=== PATIENT | male | born 1970 | race Caucasian/White ===

== ENCOUNTER 2016-08-01 08:36 | Emergency (ER) | payer BC ==
--- NOTE | 2016-08-01 09:46 | ED ---
Upper Extremity HPI - General Chief Complaint: Extremity Injury, Upper Stated Complaint: arm pain Time Seen by Provider: 08/01/16 09:26 Source: patient, RN notes reviewed Mode of arrival: ambulatory Limitations: no limitations - History of Present Illness Initial Comments: 45-year-old male presents emergency Department chief complaint left hand, arm pain. Patient states that he had no injury but states he's been using his hand more doing more work than he usually would. Patient states he feels some pain that radiates down from his neck, shoulder region down into his arm. States he primarily complains of complete left hand numbness without any weakness. Patient denies any chest pain or shortness breath. Patient states she does have full strength, full range of motion of the left hand. Patient states that is all digits to his left hand and feels a rash across his MCPs. Patient states that he is [id number]. Patient denies any neck pain at this time. - Related Data Previous Rx's Medication Instructions Recorded methylPREDNISolone [Medrol Dose 4 mg PO DIRECTED #1 pack 08/01/16 Pack] Allergies Allergy/AdvReac Type Severity Reaction Status Date / Time No Known Allergies Allergy Verified 08/01/16 08:59 Review of Systems ROS Statement: Those systems with pertinent positive or pertinent negative responses have been documented in the HPI. ROS Other: All systems not noted in ROS Statement are negative. Past Medical History Past Medical History: Diabetes Mellitus History of Any Multi-Drug Resistant Organisms: None Reported Additional Past Surgical History / Comment(s): eye surgery Past Psychological History: No Psychological Hx Reported Smoking Status: Current every day smoker Past Alcohol Use History: None Reported Past Drug Use History: Marijuana General Exam Limitations: no limitations General appearance: alert, in no apparent distress Head exam: Present: atraumatic, normocephalic, normal inspection Neck exam: Present: normal inspection, full ROM. Absent: tenderness, meningismus, lymphadenopathy Respiratory exam: Present: normal lung sounds bilaterally. Absent: respiratory distress, wheezes, rales, rhonchi, stridor Cardiovascular Exam: Present: regular rate, normal rhythm, normal heart sounds. Absent: systolic murmur, diastolic murmur, rubs, gallop, clicks Extremities exam: Present: other (Patient has some slight decreased range of motion of his left shoulder secondary to pain but he has full strength of his upper extremity bilaterally neurovascular intact radial pulses +2 equal bilaterally, patient has a negative Tinel's, negative Phalen's) Back exam: Present: normal inspection, full ROM. Absent: tenderness Neurological exam: Present: alert, oriented X3, CN II-XII intact, reflexes normal. Absent: motor sensory deficit Skin exam: Present: warm, dry, intact, normal color. Absent: rash Course Vital Signs 08/01/16 08:56 Temperature 98.3 F Pulse Rate 92 Respiratory 20 Rate Blood Pressure 154/88 O2 Sat by Pulse 98 Oximetry Medical Decision Making - Medical Decision Making 45-year-old male present emergency department for left hand numbness. Patient has ganglion cyst nor over the scaphoid. Patient referred to orthopedics. Patient we discharged this time. Disposition Clinical Impression: Ganglion cyst, Paresthesias in left hand, Cervical radiculopathy Disposition: HOME SELF-CARE Condition: Stable Instructions: Cervical Radiculopathy (ED) Additional Instructions: Please return to the Emergency Department if symptoms worsen or any other concerns. Prescriptions: methylPREDNISolone [Medrol Dose Pack] 4 mg PO DIRECTED #1 pack Referrals: None,Stated [Primary Care Provider] - 1-2 days Amando Sutherland DO [Doctor of Osteopathic Medicine] - 1-2 days Time of Disposition: 10:52
--- NOTE | 2016-08-01 10:29 | XR ---
EXAMINATION TYPE: 5 view cervical spine. 3 views left hand. DATE OF EXAM: 08/01/2016 10:00 AM COMPARISON: NONE HISTORY: 45-year-old male with left hand numbness and pain for 5 days FINDINGS: Cervical spine: No predental space widening or prevertebral soft tissue swelling. There is normal alignment of the ce rvical spine with mild endplate spondylosis throughout. The oblique views show no significant bony sp ondylotic neural foraminal narrowing on either side. Odontoid view is normal. Left hand: There is an intraosseous ganglion or cyst measuring 7 mm within the proximal scaphoid. No acute fract ure, subluxation, or dislocation. IMPRESSION: 1. Cervical spine: No acute osseous abnormality or malalignment. No significant bony spondylotic neur oforaminal narrowing seen on either side. 2. Left hand: No acute osseous abnormality seen. Suspect a 7 mm intraosseous ganglion within the scap hoid.
[2016-08-01 11:03] VITALS: BP 124/74; PULSE 70; RESP 16; TEMP 97.1
== END 2016-08-01 11:03 | disposition home or self-care (01) ==
LOC: EC 08:36
DX: M67.442 Ganglion, left hand (principal); M54.12 Radiculopathy, cervical region; F17.200 Nicotine dependence, unspecified, uncomplicated
CPT/HCPCS: 72050; 99283

== ENCOUNTER 2020-08-20 08:55 | Emergency (ER) | payer BC, OTHER ==
[2020-08-20 09:00] VITALS: RESP 18
--- NOTE | 2020-08-20 09:24 | ED ---
URI HPI - General Chief Complaint: Upper Respiratory Infection Stated Complaint: Chest Pain, Cough Time Seen by Provider: 08/20/20 09:09 Source: patient Mode of arrival: ambulatory Limitations: no limitations - History of Present Illness Initial Comments: 49-year-old male patient presents to the emergency department today for evaluation of cough and chest tightness that started this morning. States he also has nasal congestion and drainage. Does have a past history of smoking quit last November. Denies any shortness of breath. Denies chest pain. Denies any known fever or chills. Denies rash, nausea, vomiting, or diarrhea. Denies any known exposure to COVID-19. Patient denies any recent abdominal pain, constipation, back pain, numbness, tingling, dizziness, weakness, hematuria, dysuria, urinary urgency, urinary frequency, headache, visual changes, or any other complaints. - Related Data Previous Rx's Medication Instructions Recorded Albuterol Sulfate [Proair Hfa] 1 - 2 puff INHALATION Q6HR PRN #1 08/20/20 inhaler predniSONE 50 mg PO DAILY #5 tablet 08/20/20 Allergies Allergy/AdvReac Type Severity Reaction Status Date / Time No Known Allergies Allergy Verified 08/20/20 10:26 Review of Systems ROS Statement: Those systems with pertinent positive or pertinent negative responses have been documented in the HPI. ROS Other: All systems not noted in ROS Statement are negative. Past Medical History Past Medical History: Diabetes Mellitus History of Any Multi-Drug Resistant Organisms: None Reported Additional Past Surgical History / Comment(s): eye surgery Past Psychological History: No Psychological Hx Reported Smoking Status: Former smoker Past Alcohol Use History: None Reported Past Drug Use History: Marijuana General Exam Limitations: no limitations General appearance: alert, in no apparent distress, other (This is a well- developed, well-nourished adult male patient in no acute distress. Vital signs upon presentation are temperature 98.0F, pulse 70, respirations 18, blood pressure 136/87, pulse ox 97% on room air.) Eye exam: Present: normal appearance, PERRL, EOMI. Absent: scleral icterus, conjunctival injection, periorbital swelling ENT exam: Present: normal exam, normal oropharynx, mucous membranes moist Respiratory exam: Present: wheezes (Coarse wheezing noted and the posterior lung baugh worse on the left.). Absent: respiratory distress, rales, rhonchi, stridor Cardiovascular Exam: Present: regular rate, normal rhythm, normal heart sounds. Absent: systolic murmur, diastolic murmur, rubs, gallop, clicks GI/Abdominal exam: Present: soft, normal bowel sounds. Absent: distended, tenderness, guarding, rebound, rigid Neurological exam: Present: alert, oriented X3, CN II-XII intact Psychiatric exam: Present: normal affect, normal mood Skin exam: Present: warm, dry, intact, normal color. Absent: rash Course Vital Signs 08/20/20 08:58 Temperature 98.0 F Pulse Rate 70 Respiratory 18 Rate Blood Pressure 136/87 O2 Sat by Pulse 97 Oximetry Medical Decision Making - Medical Decision Making 49-year-old male, previous smoker presents to the emergency department today for evaluation of nasal congestion, cough, and chest tightness that started this morning. Physical examination did reveal coarse wheezing in the posterior lung baugh worse on the left side. Vital signs are unremarkable with good oxygen saturation. Chest x-ray shows chronic disease but no acute changes. He tested negative for COVID-19. He'll be discharged with a course of steroids and given a Pro Air inhaler. He is instructed to follow-up with his primary care physician for recheck in 1-2 days. Return parameters were discussed in detail. He verbalizes understanding and agrees with this plan. Attending is Dr. Banuelos. - Lab Data Lab Results 08/20/20 Range/Units 09:27 Coronavirus (PCR) Not Detected (Not Detectd) - Radiology Data Radiology results: report reviewed, image reviewed One view x-ray of the chest is obtained. Report was reviewed in its entirety. Impression by Dr. Deal shows chronic changes without evidence for acute pulmonary disease. Disposition Clinical Impression: Upper respiratory infection, Common cold Disposition: HOME SELF-CARE Condition: Good Instructions (If sedation given, give patient instructions): Upper Respiratory Infection (ED), Wheezing (ED) Additional Instructions: Take medications as directed. Follow up with your primary care physician for recheck in 1-2 days. Return to the emergency department for any new, worsening, or concerning symptoms. Prescriptions: predniSONE 50 mg PO DAILY #5 tablet Albuterol Sulfate [Proair Hfa] 1 - 2 puff INHALATION Q6HR PRN #1 inhaler PRN Reason: Shortness Of Breath Is patient prescribed a controlled substance at d/c from ED?: No Referrals: None,Stated [Primary Care Provider] - 1-2 days Time of Disposition: 10:36
--- NOTE | 2020-08-20 10:06 | XR ---
EXAMINATION TYPE: XR chest 1V DATE OF EXAM: 08/20/2020 HISTORY: Shortness of breath. COMPARISON: None. TECHNIQUE: Single view of the chest is submitted. FINDINGS: Demonstrated are scattered senescent parenchymal change. There is no evidence for focal infiltrate. The heart is stable. Hilar and mediastinal structures are within normal limits. Degenerative changes are seen of the dorsal spine. IMPRESSION: 1. Chronic changes without evidence for acute pulmonary disease.
[2020-08-20] MEDS ORDERED: predniSONE 50 MG TAB PO STA (10:35)
[2020-08-20 11:00] VITALS: BP 118/70; PULSE 96; TEMP 98.4
== END 2020-08-20 11:02 | disposition home or self-care (01) ==
LOC: EC 08:55
DX: J06.9 Acute upper respiratory infection, unspecified (principal); E11.9 Type 2 diabetes mellitus without complications; Z87.891 Personal history of nicotine dependence; F12.90 Cannabis use, unspecified, uncomplicated
CPT/HCPCS: 87635; 71045; 99285; J7512

== ENCOUNTER 2021-09-23 06:59 | Emergency (ER) | payer OTHER ==
[2021-09-23 07:05] VITALS: TEMP 98.1
[2021-09-23] MEDS ORDERED: LIDOCAINE 5% PATCH TOPICAL STA (07:39)
--- NOTE | 2021-09-23 07:41 | ED ---
General Adult HPI - General Chief complaint: Back Pain/Injury Stated complaint: fall, back pain Time Seen by Provider: 09/23/21 07:06 Source: patient Mode of arrival: ambulatory Limitations: no limitations - History of Present Illness Initial comments: Dictation was produced using [employer] dictation software. please excuse any grammatical, word or spelling errors. Chief Complaint: 50-year-old malepast medical history presents with back pain after fall History of Present Illness: 50-year-old male he has not up at 3 in this morning to get ready for work. He is walking on the steps when he slipped. He landed on his left side went down a couple steps. Patient had some left-sided lower extremity pain however that resolved quickly. He was able to get to work when he was told to go home because he didn't begin until 7 AM. Patient went home and laid down to get more rest. When he woke up toxically 30 minutes prior to arrival he started to have tightness in his upper lumbar lower thoracic back. Patient states he is injured his back in the past. Denies any fevers. No numbness and paresthesias of the lower extremities. No saddle anesthesia. No difficulty ambulating The ROS documented in this emergency department record has been reviewed and confirmed by me. Those systems with pertinent positive or negative responses have been documented in the HPI. All other systems are other negative and/or noncontributory. PHYSICAL EXAM: General Impression: Alert and oriented x3, not in acute distress HEENT: Normocephalic atraumatic, extra-ocular movements intact, pupils equal and reactive to light bilaterally, mucous membranes moist. Cardiovascular: Heart regular rate and rhythm Chest: Able to complete full sentences, no retractions, no tachypnea Musculoskeletal: Pulses present and equal in all extremities, no peripheral edema Motor: no focal deficits noted Neurological: CN II-XII grossly intact, no focal motor or sensory deficits noted Skin: Intact with no visualized rashes Psych: Normal affect and mood ED course: 50-year-old male presents to the emergency department for clinical presentation consistent with back strain. Vital signs upon arrival are within acceptable limits. Patient refusing analgesic administration. He is however agreeable to Lidoderm patch. Patient does not have any high-risk features. He does not take steroids. Does not have any history of osteoporosis. Thoracic and lumbar spine x-ray shows no acute processe patient will be discharged. Advised to follow-up with primary care doctor. Clinical presentation consistent with back strain. - Related Data Previous Rx's Medication Instructions Recorded Albuterol Sulfate [Proair Hfa] 1 - 2 puff INHALATION Q6HR PRN #1 08/20/20 inhaler predniSONE 50 mg PO DAILY #5 tablet 08/20/20 Allergies Allergy/AdvReac Type Severity Reaction Status Date / Time No Known Allergies Allergy Verified 09/23/21 07:03 Review of Systems ROS Statement: Those systems with pertinent positive or pertinent negative responses have been documented in the HPI. ROS Other: All systems not noted in ROS Statement are negative. Past Medical History Past Medical History: Diabetes Mellitus History of Any Multi-Drug Resistant Organisms: None Reported Additional Past Surgical History / Comment(s): eye surgery Past Psychological History: No Psychological Hx Reported Smoking Status: Former smoker Past Alcohol Use History: None Reported Past Drug Use History: Marijuana General Exam Limitations: no limitations Course Vital Signs 09/23/21 09/23/21 07:04 08:35 Temperature 98.1 F Pulse Rate 94 88 Respiratory 16 18 Rate Blood Pressure 135/81 132/80 O2 Sat by Pulse 99 99 Oximetry Disposition Clinical Impression: Back strain Disposition: HOME SELF-CARE Condition: Good Instructions (If sedation given, give patient instructions): Acute Low Back Pain (ED) Is patient prescribed a controlled substance at d/c from ED?: No Referrals: None,Stated [Primary Care Provider] - 1-2 days
--- NOTE | 2021-09-23 08:24 | XR ---
Thoracic spine HISTORY: Trauma and pain Frontal and lateral views of the thoracic spine on 4 images There is multilevel spondylosis. Thoracic vertebral bodies show preserved height, alignment, and bone mineralization. Metallic foreign body, BB present posteriorly on the right superimposed over the pos terior right lung base. Disc spaces mildly reduced in the upper to midthoracic spine. IMPRESSION: Degenerative disc disease. Foreign body.
--- NOTE | 2021-09-23 08:25 | XR ---
Lumbar spine HISTORY: Trauma and pain 3 views lumbar spine Correlation to thoracic spine same date, lumbar spine 01/27/2013 Foreign body superimposed over the posterior aspect of the right upper quadrant is again noted. Lumba r vertebral bodies show preserved height, alignment, and bone mineralization. There is multilevel spo ndylosis. Sclerosis is present in the posterior elements of the lower lumbar spine. Disc spaces are m aintained. IMPRESSION: Spondylosis, facet arthropathy. No acute fracture or subluxation.
[2021-09-23 08:42] VITALS: BP 132/80; PULSE 88; RESP 18
== END 2021-09-23 09:18 | disposition home or self-care (01) ==
LOC: EC 06:59
DX: S39.012A Strain of muscle, fascia and tendon of lower back, initial encounter (principal); E11.9 Type 2 diabetes mellitus without complications; Z87.891 Personal history of nicotine dependence; W10.9XXA Fall (on) (from) unspecified stairs and steps, initial encounter; Y93.01 Activity, walking, marching and hiking
CPT/HCPCS: 72070; 72100; 99284

== ENCOUNTER 2022-03-31 12:49 | Emergency (ER) | payer OTHER, BC ==
[2022-03-31 13:18] VITALS: TEMP 97.7
--- NOTE | 2022-03-31 13:37 | XR ---
EXAMINATION TYPE: XR hand complete RT DATE OF EXAM: 03/31/2022 1:32 PM INDICATION: Patient age:Male; 51 years old; Reason for study: crush injury to right hand fingers laceration 1st; [facility]. COMPARISON: None TECHNIQUE: Frontal, lateral and oblique views of the right hand were obtained. FINDINGS: Normal alignment of the visualized joints. No acute osseous pathology is identified. No e vidence of soft tissue swelling. IMPRESSION: No acute fracture or dislocation.
[2022-03-31] MEDS ORDERED: LIDOCAINE 1% INJ 10MG/ML (30 ML VIAL-PF) SQ ONE (15:11)
[2022-03-31] MEDS ORDERED: IBUPROFEN 800 MG TAB PO STA (15:11)
--- NOTE | 2022-03-31 15:47 | ED ---
Wound/Laceration HPI - General Chief Complaint: Wound/Laceration Stated Complaint: [facility],Finger injury Time Seen by Provider: 03/31/22 15:01 Source: patient Mode of arrival: ambulatory Limitations: no limitations - History of Present Illness Initial Comments: Patient is a 51-year-old male who presents with right ring finger injury. Patient states his finger got caught in a hydraulic door at work. He reports minimal pain. Reports last tetanus 2 years ago. Denies numbness and tingling. - Related Data Previous Rx's Medication Instructions Recorded Albuterol Sulfate [Proair Hfa] 1 - 2 puff INHALATION Q6HR PRN #1 08/20/20 inhaler predniSONE 50 mg PO DAILY #5 tablet 08/20/20 Cephalexin [Keflex] 500 mg PO Q6HR #20 cap 03/31/22 Allergies Allergy/AdvReac Type Severity Reaction Status Date / Time No Known Allergies Allergy Verified 09/23/21 07:03 Review of Systems ROS Statement: Those systems with pertinent positive or pertinent negative responses have been documented in the HPI. ROS Other: All systems not noted in ROS Statement are negative. Past Medical History Past Medical History: Diabetes Mellitus History of Any Multi-Drug Resistant Organisms: None Reported Additional Past Surgical History / Comment(s): eye surgery Past Psychological History: No Psychological Hx Reported Smoking Status: Former smoker Past Alcohol Use History: None Reported Past Drug Use History: Marijuana General Exam Limitations: no limitations General appearance: alert, in no apparent distress Respiratory exam: Present: normal lung sounds bilaterally. Absent: respiratory distress, wheezes, rales, rhonchi, stridor Cardiovascular Exam: Present: regular rate, normal rhythm, normal heart sounds. Absent: systolic murmur, diastolic murmur, rubs, gallop, clicks Extremities exam: Present: other (2 cm laceration over palmar right ring finger near PIP joint. Deep structures intact. Full ROM. Neurovascularly intact) Neurological exam: Present: alert, oriented X3, CN II-XII intact Psychiatric exam: Present: normal affect, normal mood Course Vital Signs 03/31/22 03/31/22 03/31/22 13:15 16:05 16:25 Temperature 97.7 F Pulse Rate 94 92 Respiratory 16 18 Rate Blood Pressure 143/102 130/84 O2 Sat by Pulse 98 96 Oximetry Procedures - Laceration Laceration #1 Consent Obtained: verbal consent Indication: laceration Site: other (right ring finger) Description: flap, irregular Anesthetic Used: lidocaine 1% Anesthesia Technique: nerve block Pre-repair: wound explored, irrigated extensively Type of Sutures: nylon Size of Sutures: 5-0, 6-0 Number of Sutures: 4 Technique: simple, interrupted Patient Tolerated Procedure: well, no complications Medical Decision Making - Medical Decision Making This is a 51-year-old male presenting with right ring finger laceration. Right hand x-ray obtained and reviewed by me which is negative for fracture and foreign body. Wound was irrigated extensively well approximated with 4 sutures. Tetanus update not indicated. Wound education provided in detail. Will place patient on Keflex for infection prophylaxis as patient is at greater risk for infection with his work history. Dr. Molina is my attending. Disposition Clinical Impression: Laceration Disposition: HOME SELF-CARE Condition: Good Instructions (If sedation given, give patient instructions): Care For Your Stitches (ED), Laceration (ED) Additional Instructions: Leave wound uncovered. Keep wound clean and dry. Wash with a mild soap. Take Tylenol or anti-inflammatories such as Motrin for pain. Follow-up with primary care provider in 1-2 days. Return for suture removal in 7-10 days. Report back to the emergency department if you experience new, concerning, or worsening symptoms. Is patient prescribed a controlled substance at d/c from ED?: No Referrals: None,Stated [Primary Care Provider] - 1-2 days Time of Disposition: 15:47
[2022-03-31 16:05] VITALS: BP 130/84
[2022-03-31 16:27] VITALS: PULSE 92; RESP 18
== END 2022-03-31 16:38 | disposition home or self-care (01) ==
LOC: EC 12:49
DX: S61.210A Laceration without foreign body of right index finger without damage to nail, initial encounter (principal); E11.9 Type 2 diabetes mellitus without complications; Z87.891 Personal history of nicotine dependence; F12.90 Cannabis use, unspecified, uncomplicated; Z79.51 Long term (current) use of inhaled steroids; W23.1XXA Caught, crushed, jammed, or pinched between stationary objects, initial encounter
CPT/HCPCS: 73130; 99283; 12001; J2001

== ENCOUNTER → 2022-04-09 | Outpatient (CLI) | payer OTHER ==
--- NOTE | 2022-04-09 09:40 | XR ---
EXAMINATION TYPE: XR finger RT DATE OF EXAM: 04/09/2022 COMPARISON: Prior right hand x-ray 9 days ago HISTORY: Crushing Injury with pain TECHNIQUE: 3 views right second finger. FINDINGS: No acute fracture or dislocation within the second finger of the right hand. Joint spaces a re maintained. Possible punctate soft tissue foreign body distal aspect of the second finger just bel ow the distal nail bed is present on all 3 images. Correlate clinically. IMPRESSION: No acute fracture or dislocation second finger right hand.
== END | disposition home or self-care (01) ==
LOC: RADXRMAIN 09:16
PROVIDERS: ATTEND Emergency Medicine
DX: S61.200D Unspecified open wound of right index finger without damage to nail, subsequent encounter (principal); S67.21XD Crushing injury of right hand, subsequent encounter

== ENCOUNTER 2022-05-13 06:56 | Emergency (ER) | payer BC ==
[2022-05-13 07:04] VITALS: BP 132/97; PULSE 83; TEMP 97.9
[2022-05-13 07:33] VITALS: RESP 20
--- NOTE | 2022-05-13 07:52 | XR ---
EXAMINATION TYPE: XR chest 2V DATE OF EXAM: 05/13/2022 7:48 AM COMPARISON: Chest radiographs from 08/20/2020. TECHNIQUE: XR chest 2V Frontal and lateral views of the chest. CLINICAL INDICATION:Male, 51 years old with history of cough; FINDINGS: Lungs/Pleura: There is no evidence of pleural effusion, focal consolidation, or pneumothorax. Pulmonary vascularity: Unremarkable. Heart/mediastinum: Cardiomediastinal silhouette is unremarkable. Musculoskeletal: No acute osseous pathology. Stable 5 mm metallic BB within the posterior right back soft tissues. IMPRESSION: No acute cardiopulmonary disease/process. No significant change from prior exams.
--- NOTE | 2022-05-13 08:29 | ED ---
General Adult HPI - General Chief complaint: Upper Respiratory Infection Stated complaint: Congestion, Body Aches Time Seen by Provider: 05/13/22 06:57 Source: patient, RN notes reviewed Mode of arrival: ambulatory Limitations: no limitations - History of Present Illness Initial comments: 51-year-old male presents emergency Department with chief complaint of fever cough congestion body aches. Patient states symptoms started this morning when he woke up. He states he feels very achy diffusely. Denies feeling short of breath. Patient states that he used to be a smoker. Patient states that he is not taking time Motrin does not want any. Patient denies nausea vomiting diarrhea constipation no sick contacts. - Related Data Previous Rx's Medication Instructions Recorded Albuterol Sulfate [Proair Hfa] 1 - 2 puff INHALATION Q6HR PRN #1 08/20/20 inhaler predniSONE 50 mg PO DAILY #5 tablet 08/20/20 Cephalexin [Keflex] 500 mg PO Q6HR #20 cap 03/31/22 Albuterol Sulfate [Proair Hfa] 1 - 2 puff INHALATION Q4HR PRN 05/13/22 #8.5 gm Oseltamivir [Tamiflu] 75 mg PO Q12HR #10 cap 05/13/22 Allergies Allergy/AdvReac Type Severity Reaction Status Date / Time No Known Allergies Allergy Verified 05/13/22 07:04 Review of Systems ROS Statement: Those systems with pertinent positive or pertinent negative responses have been documented in the HPI. ROS Other: All systems not noted in ROS Statement are negative. Past Medical History Past Medical History: Diabetes Mellitus History of Any Multi-Drug Resistant Organisms: None Reported Additional Past Surgical History / Comment(s): eye surgery Past Psychological History: No Psychological Hx Reported Smoking Status: Former smoker Past Alcohol Use History: None Reported Past Drug Use History: Marijuana General Exam Limitations: no limitations General appearance: alert, in no apparent distress Head exam: Present: atraumatic, normocephalic, normal inspection Eye exam: Present: normal appearance, PERRL, EOMI. Absent: scleral icterus, conjunctival injection, periorbital swelling ENT exam: Present: normal exam, normal oropharynx, mucous membranes moist Neck exam: Present: normal inspection. Absent: tenderness, meningismus, lymphadenopathy Respiratory exam: Present: wheezes. Absent: normal lung sounds bilaterally, respiratory distress, rales, rhonchi, stridor Cardiovascular Exam: Present: regular rate, normal rhythm, normal heart sounds. Absent: systolic murmur, diastolic murmur, rubs, gallop, clicks Course Vital Signs 05/13/22 05/13/22 07:00 07:28 Temperature 97.9 F Pulse Rate 83 Respiratory 19 20 Rate Blood Pressure 132/97 O2 Sat by Pulse 97 Oximetry Medical Decision Making - Medical Decision Making Chest x-ray as interpreted by me and radiology no acute abnormality. Patient is influenza A positive. Patient discharged in stable condition return parameters were discussed. - Lab Data Lab Results 05/13/22 Range/Units 07:13 Influenza Type A (PCR) Detected A (Not Detectd) Influenza Type B (PCR) Not Detected (Not Detectd) RSV (PCR) Not Detected (Not Detectd) SARS-CoV-2 (PCR) Not Detected (Not Detectd) Disposition Clinical Impression: Influenza A Disposition: HOME SELF-CARE Condition: Stable Instructions (If sedation given, give patient instructions): Influenza (ED) Additional Instructions: Please return to the Emergency Department if symptoms worsen or any other concerns. Prescriptions: Albuterol Sulfate [Proair Hfa] 1 - 2 puff INHALATION Q4HR PRN #8.5 gm PRN Reason: difficulty in breathing Oseltamivir [Tamiflu] 75 mg PO Q12HR #10 cap Is patient prescribed a controlled substance at d/c from ED?: No Referrals: None,Stated [Primary Care Provider] - 1-2 days Time of Disposition: 08:29
== END 2022-05-13 08:41 | disposition home or self-care (01) ==
LOC: EC 06:56
DX: J10.1 Influenza due to other identified influenza virus with other respiratory manifestations (principal); E11.9 Type 2 diabetes mellitus without complications; F12.90 Cannabis use, unspecified, uncomplicated; Z87.891 Personal history of nicotine dependence; Z20.822 Contact with and (suspected) exposure to COVID-19
CPT/HCPCS: 71046; 87636; 99283; 99284

== ENCOUNTER 2022-08-20 06:14 | Emergency (ER) | payer BC ==
[2022-08-20 06:30] VITALS: RESP 18; TEMP 98.1
--- NOTE | 2022-08-20 06:55 | ED ---
General Adult HPI - General Chief complaint: Wound/Laceration Stated complaint: PAIN IN BOTH FEET/CUT BETWEEN TOES ON RIGHT FOOT Time Seen by Provider: 08/20/22 06:23 Source: patient, RN notes reviewed Mode of arrival: ambulatory - History of Present Illness Initial comments: 51-year-old male presents emergency Department with chief complaint of right foot injury. Patient states she stepped on his dog bone and states he rolled his foot complaining of fifth digit pain in between the toes. Patient states his tetanus is up-to-date. Patient states he has more chronic pain of both feet recent he states he is a type II diabetic states his blood sugar is wax and wane States started 2 to 300s. Patient states it was better this morning patient denies any discoloration of his feet denies any other trauma. - Related Data Previous Rx's Medication Instructions Recorded Albuterol Sulfate [Proair Hfa] 1 - 2 puff INHALATION Q6HR PRN #1 08/20/20 inhaler predniSONE 50 mg PO DAILY #5 tablet 08/20/20 Cephalexin [Keflex] 500 mg PO Q6HR #20 cap 03/31/22 Albuterol Sulfate [Proair Hfa] 1 - 2 puff INHALATION Q4HR PRN 05/13/22 #8.5 gm Oseltamivir [Tamiflu] 75 mg PO Q12HR #10 cap 05/13/22 Cephalexin [Keflex] 500 mg PO Q8HR #21 cap 08/20/22 Allergies Allergy/AdvReac Type Severity Reaction Status Date / Time No Known Allergies Allergy Verified 05/13/22 07:04 Review of Systems ROS Statement: Those systems with pertinent positive or pertinent negative responses have been documented in the HPI. ROS Other: All systems not noted in ROS Statement are negative. Past Medical History Past Medical History: Diabetes Mellitus History of Any Multi-Drug Resistant Organisms: None Reported Additional Past Surgical History / Comment(s): eye surgery Past Psychological History: No Psychological Hx Reported Smoking Status: Former smoker Past Alcohol Use History: None Reported Past Drug Use History: Marijuana General Exam Limitations: no limitations General appearance: alert, in no apparent distress Head exam: Present: atraumatic, normocephalic, normal inspection Respiratory exam: Present: normal lung sounds bilaterally. Absent: respiratory distress, wheezes, rales, rhonchi, stridor Cardiovascular Exam: Present: regular rate, normal rhythm, normal heart sounds. Absent: systolic murmur, diastolic murmur, rubs, gallop, clicks Extremities exam: Present: other (Right foot fifth digit there is pain of the digit and just proximal to the digit. There is a small opening between the toes without any erythema or purulent drainage. Neurovascular intact) Neurological exam: Present: alert Skin exam: Present: warm, dry, intact, normal color. Absent: rash Course Vital Signs 08/20/22 06:23 Temperature 98.1 F Pulse Rate 105 H Respiratory 18 Rate Blood Pressure 146/103 O2 Sat by Pulse 100 Oximetry Medical Decision Making - Medical Decision Making Was pt. sent in by a medical professional or institution (, IVAN, FIRE EXTINGUISHER CHARGER, urgent care, hospital, or custodial...) When possible be specific @ -No Did you speak to anyone other than the patient for history (EMS, parent, family, police, friend...)? What history was obtained from this source @ -No Did you review nursing and triage notes (agree or disagree)? Why? @ -I reviewed and agree with nursing and triage notes Were old charts reviewed (outside hosp., previous admission, EMS record, old EKG, old radiological studies, urgent care reports/EKG's, custodial records)? Report findings @ -No old charts were reviewed Differential Diagnosis (chest pain, altered mental status, abdominal pain women, abdominal pain men, vaginal bleeding, weakness, fever, dyspnea, syncope, headache, dizziness, GI bleed, back pain, seizure, CVA, palpatations, mental health, musculoskeletal)? @ -Toe fracture, foot fracture, foot wound, as this is not CONCLUSIVE EKG interpreted by me (3pts min.). @ -[None X-rays interpreted by me (1pt min.). @ -X-ray shows no acute fracture of the right foot CT interpreted by me (1pt min.). @ -None done U/S interpreted by me (1pt. min.). @ -None done What testing was considered but not performed or refused? (CT, X-rays, U/S, labs)? Why? @ -None What meds were considered but not given or refused? Why? @ -None Did you discuss the management of the patient with other professionals (professionals i.e. , PA, FIRE EXTINGUISHER CHARGER, lab, RT, psych nurse, community mental health social worker, information coordinator, teacher, certified juvenile probation officer, case packer)? Give summary @ -No Was smoking cessation discussed for >3mins.? @ -No Was critical care preformed (if so, how long)? @ -No Were there social determinants of health that impacted care today? How? (Homelessness, low income, unemployed, alcoholism, drug addiction, transportation, low edu. Level, literacy, decrease access to med. care, fdc, rehab)? @ -No Was there de-escalation of care discussed even if they declined (Discuss DNR or withdrawal of care, Hospice)? DNR status @ -No What co-morbidities impacted this encounter? (DM, HTN, Smoking, COPD, CAD, Cancer, CVA, ARF, Chemo, Hep., AIDS, mental health diagnosis, sleep apnea, morbid obesity)? @ -Diabetes Was patient admitted / discharged? Hospital course, mention meds given and route, prescriptions, significant lab abnormalities, going to OR and other pertinent info. @ -Discharged patient has no acute fracture on x-ray patient is a small open wound with no changes currently patient replacement course and was given patient is diabetic, poorly controlled with some neuropathy. Patient advised to have checks daily of his feet. Undiagnosed new problem with uncertain prognosis? @ -No Drug Therapy requiring intensive monitoring for toxicity (Heparin, Nitro, Insulin, Cardizem)? @ -No Were any procedures done? @ -No Diagnosis/symptom? @ -Right foot contusion, foot wound Acute, or Chronic, or Acute on Chronic? @ -Acute Uncomplicated (without systemic symptoms) or Complicated (systemic symptoms)? @ -Uncomplicated Side effects of treatment? @ -No Exacerbation, Progression, or Severe Exacerbation? @ -No Poses a threat to life or bodily function? How? (Chest pain, [place], [place], pneumonia, PE, COPD, DKA, ARF, appy, cholecystitis, CVA, Diverticulitis, Homicidal, Olimpia cidal, threat to staff... and all critical care pts) @ -No Disposition Clinical Impression: Foot contusion, Wound of foot, Diabetic neuropathy Disposition: HOME SELF-CARE Condition: Stable Instructions (If sedation given, give patient instructions): Foot Contusion (ED) Additional Instructions: Please return to the Emergency Department if symptoms worsen or any other concerns. Prescriptions: Cephalexin [Keflex] 500 mg PO Q8HR #21 cap Is patient prescribed a controlled substance at d/c from ED?: No Referrals: None,Stated [Primary Care Provider] - 1-2 days Time of Disposition: 07:17
--- NOTE | 2022-08-20 07:00 | XR ---
EXAMINATION TYPE: XR foot complete RT DATE OF EXAM: 08/20/2022 COMPARISON: None HISTORY: Pain fifth digit TECHNIQUE: 3 view right foot FINDINGS: No acute fracture or dislocation is evident. Joint spaces are preserved. Soft tissues are n ormal. Follow up exams can be performed 710 days from acute trauma for continued pain. IMPRESSION: 1. No acute osseous around the right foot
[2022-08-20 07:37] VITALS: BP 139/88; PULSE 98
== END 2022-08-20 07:37 | disposition home or self-care (01) ==
LOC: EC 06:14
DX: S90.31XA Contusion of right foot, initial encounter (principal); S91.301A Unspecified open wound, right foot, initial encounter; E11.40 Type 2 diabetes mellitus with diabetic neuropathy, unspecified; F12.90 Cannabis use, unspecified, uncomplicated; Z87.891 Personal history of nicotine dependence; W22.8XXA Striking against or struck by other objects, initial encounter
CPT/HCPCS: 99283

== ENCOUNTER 2023-06-03 06:07 | Emergency (ER) | payer BC ==
[2023-06-03 06:40] VITALS: TEMP 97.9
--- NOTE | 2023-06-03 06:46 | ED ---
URI HPI - General Chief Complaint: Upper Respiratory Infection Stated Complaint: Congestion Time Seen by Provider: 06/03/23 06:22 Source: patient, RN notes reviewed Limitations: no limitations - History of Present Illness Initial Comments: This is a 52-year-old male presents emergency department with chief complaint of cough congestion body aches. Patient states symptoms overnight. He states he feels like he has tons of congestion in his sinus, chest. He states he has a productive cough he reports possible fever and bodyaches. Denies any GI symptoms. He states he has multiple contacts at work to have had COVID-19 - Related Data Previous Rx's Medication Instructions Recorded Albuterol Sulfate [Proair Hfa] 1 - 2 puff INHALATION Q6HR PRN #1 08/20/20 inhaler predniSONE 50 mg PO DAILY #5 tablet 08/20/20 Cephalexin [Keflex] 500 mg PO Q6HR #20 cap 03/31/22 Albuterol Sulfate [Proair Hfa] 1 - 2 puff INHALATION Q4HR PRN 05/13/22 #8.5 gm Oseltamivir [Tamiflu] 75 mg PO Q12HR #10 cap 05/13/22 Cephalexin [Keflex] 500 mg PO Q8HR #21 cap 08/20/22 Cephalexin [Keflex] 500 mg PO Q6HR #40 cap 03/03/23 Allergies Allergy/AdvReac Type Severity Reaction Status Date / Time No Known Allergies Allergy Verified 06/03/23 06:21 Review of Systems ROS Statement: Those systems with pertinent positive or pertinent negative responses have been documented in the HPI. ROS Other: All systems not noted in ROS Statement are negative. Past Medical History Past Medical History: Diabetes Mellitus History of Any Multi-Drug Resistant Organisms: None Reported Additional Past Surgical History / Comment(s): eye surgery Past Psychological History: No Psychological Hx Reported Smoking Status: Former smoker Past Alcohol Use History: None Reported Past Drug Use History: Marijuana General Exam Limitations: no limitations General appearance: alert, in no apparent distress Head exam: Present: atraumatic, normocephalic, normal inspection Eye exam: Present: normal appearance, PERRL, EOMI. Absent: scleral icterus, conjunctival injection, periorbital swelling ENT exam: Present: normal exam, normal oropharynx, mucous membranes moist Neck exam: Present: normal inspection, full ROM. Absent: tenderness, meningismus, lymphadenopathy Respiratory exam: Present: normal lung sounds bilaterally. Absent: respiratory distress, wheezes, rales, rhonchi, stridor Cardiovascular Exam: Present: regular rate, normal rhythm, normal heart sounds. Absent: systolic murmur, diastolic murmur, rubs, gallop, clicks GI/Abdominal exam: Present: soft, normal bowel sounds. Absent: distended, tenderness, guarding, rebound, rigid Neurological exam: Present: alert Course Vital Signs 06/03/23 06:16 Temperature 97.9 F Pulse Rate 101 H Respiratory 20 Rate Blood Pressure 138/89 O2 Sat by Pulse 97 Oximetry Medical Decision Making - Medical Decision Making Was pt. sent in by a medical professional or institution (, IVAN, CLAIM ADMINISTRATOR, urgent care, hospital, or residential...) When possible be specific @ -No Did you speak to anyone other than the patient for history (EMS, parent, family, police, friend...)? What history was obtained from this source @ -No Did you review nursing and triage notes (agree or disagree)? Why? @ -I reviewed and agree with nursing and triage notes Were old charts reviewed (outside hosp., previous admission, EMS record, old EKG, old radiological studies, urgent care reports/EKG's, residential records)? Report findings @ -No old charts were reviewed Differential Diagnosis (chest pain, altered mental status, abdominal pain women, abdominal pain men, vaginal bleeding, weakness, fever, dyspnea, syncope, headache, dizziness, GI bleed, back pain, seizure, CVA, palpatations, mental health, musculoskeletal)? @ -COVID 19, RSV, influenza, pneumonia, acute bronchitis, URI, this list is not all inclusive EKG interpreted by me (3pts min.). @ -None X-rays interpreted by me (1pt min.). @ -None done CT interpreted by me (1pt min.). @ -None done U/S interpreted by me (1pt. min.). @ -None done What testing was considered but not performed or refused? (CT, X-rays, U/S, labs)? Why? @ -None What meds were considered but not given or refused? Why? @ -None Did you discuss the management of the patient with other professionals (professionals i.e. , IVAN, CLAIM ADMINISTRATOR, lab, RT, psych nurse, psychotherapist social worker, director manufacturing engineering, teacher, school services officer, pillowcase cleaner)? Give summary @ -No Was smoking cessation discussed for >3mins.? @ -No Was critical care preformed (if so, how long)? @ -No Were there social determinants of health that impacted care today? How? (Homelessness, low income, unemployed, alcoholism, drug addiction, transportation, low edu. Level, literacy, decrease access to med. care, detention, rehab)? @ -No Was there de-escalation of care discussed even if they declined (Discuss DNR or withdrawal of care, Hospice)? DNR status @ -No What co-morbidities impacted this encounter? (DM, HTN, Smoking, COPD, CAD, Cancer, CVA, ARF, Chemo, Hep., AIDS, mental health diagnosis, sleep apnea, morbid obesity)? @ -None Was patient admitted / discharged? Hospital course, mention meds given and route, prescriptions, significant lab abnormalities, going to OR and other pertinent info. @ -Discharge patient drives a positive. Patient's is no signs of distress we discharged in stable condition return parameters were discussed. Undiagnosed new problem with uncertain prognosis? @ -No Drug Therapy requiring intensive monitoring for toxicity (Heparin, Nitro, Insulin, Cardizem)? @ -No Were any procedures done? @ -No Diagnosis/symptom? @ -RSV infection] Acute, or Chronic, or Acute on Chronic? @ -Acute Uncomplicated (without systemic symptoms) or Complicated (systemic symptoms)? @ -Uncomplicated. Side effects of treatment? @ -No Exacerbation, Progression, or Severe Exacerbation? @ -No Poses a threat to life or bodily function? How? (Chest pain, [place], [place], pneumonia, PE, COPD, DKA, ARF, appy, cholecystitis, CVA, Diverticulitis, Homicidal, Suicidal, threat to staff... and all critical care pts) @ -No - Lab Data Lab Results 06/03/23 Range/Units 06:29 Influenza Type A (PCR) Not Detected (Not Detectd) Influenza Type B (PCR) Not Detected (Not Detectd) RSV (PCR) Detected A (Not Detectd) SARS-CoV-2 (PCR) Not Detected (Not Detectd) Disposition Clinical Impression: RSV infection Disposition: HOME SELF-CARE Condition: Stable Instructions (If sedation given, give patient instructions): Upper Respiratory Infection (ED) Additional Instructions: Please return to the Emergency Department if symptoms worsen or any other concerns. Is patient prescribed a controlled substance at d/c from ED?: No Referrals: None,Stated [Primary Care Provider] - 1-2 days Time of Disposition: 07:32
[2023-06-03 08:16] VITALS: BP 132/86; PULSE 96; RESP 18
== END 2023-06-03 07:54 | disposition home or self-care (01) ==
LOC: EC 06:07
DX: R09.81 Nasal congestion (principal); B97.4 Respiratory syncytial virus as the cause of diseases classified elsewhere; E11.9 Type 2 diabetes mellitus without complications; F12.90 Cannabis use, unspecified, uncomplicated; Z87.891 Personal history of nicotine dependence; Z20.822 Contact with and (suspected) exposure to COVID-19
CPT/HCPCS: 87636; 99283

== ENCOUNTER 2023-10-24 02:30 | Emergency (ER) | payer BC ==
[2023-10-24] MEDS: LIDOCAINE 4% PATCH TOPICAL ONE (03:30)
[2023-10-24] MEDS: DEXAMETHASONE SOD PHOSPHATE 10 MG/ML 1 ML VIAL IM STA (03:32)
[2023-10-24] MEDS: KETOROLAC 15 MG/ML 1 ML VIAL IM STA (03:33)
[2023-10-24] MEDS: ORPHENADRINE 30 MG/ML 2 ML VIAL IM STA (03:33)
[2023-10-24] MEDS: IBUPROFEN 800 MG TAB PO STA (03:40)
[2023-10-24] MEDS: CYCLOBENZAPRINE 10 MG TAB PO STA (03:40)
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
[2023-10-24] MEDS: HYDROcodone/APAP 7.5-325MG 1 EACH TAB PO ONE (05:08)
--- NOTE | 2023-10-24 05:37 | XR ---
EXAM: XR Thoracic Spine, 2 Views CLINICAL HISTORY: ITS.REASON XR Reason: injury TECHNIQUE: Frontal and lateral views of the thoracic spine. COMPARISON: 09/23/2021 FINDINGS: Vertebrae: Unremarkable. No acute fracture. Normal alignment. Disc spaces: No acute findings. No significant narrowing. Soft tissues: Unremarkable. IMPRESSION: Normal thoracic spine x-rays.
[2023-10-24 06:04] VITALS: BP 107/73; PULSE 99; RESP 20; TEMP 97.8
== END 2023-10-24 06:02 | disposition home or self-care (01) ==
LOC: EC 02:30
DX: M54.9 Dorsalgia, unspecified (principal); Z87.891 Personal history of nicotine dependence; V29.99XA Rider (driver) (passenger) of other motorcycle injured in unspecified traffic accident, initial encounter; Y92.410 Unspecified street and highway as the place of occurrence of the external cause
CPT/HCPCS: 72070; 99284

== ENCOUNTER 2023-10-26 03:49 | Emergency (ER) | payer BC ==
[2023-10-26 04:43] VITALS: TEMP 98
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
[2023-10-26 05:15] LABS: Appearance,Urine Clear (Clear); Bilirubin,Urine Negative (Negative); Blood,Urine Negative (Negative); Color,Urine Colorless; Glucose,Urine (UA) 4+ (Negative); Ketones,Urine Negative (Negative); Leukocyte Esterase,Urine Negative (Negative); Nitrite,Urine Negative (Negative); PH, Urine 5.5 (5.0-8.0); Protein,Urine Negative (Negative); Specific Gravity,Urine 1.041 (1.001-1.035); Urobilinogen,Urine <2.0 mg/dL (<2.0)
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
[2023-10-26 06:57] VITALS: BP 123/85; PULSE 97; RESP 20
== END 2023-10-26 05:50 | disposition home or self-care (01) ==
LOC: EC 03:49
DX: S22.41XA Multiple fractures of ribs, right side, initial encounter for closed fracture (principal); F12.90 Cannabis use, unspecified, uncomplicated; Z87.891 Personal history of nicotine dependence; W01.0XXA Fall on same level from slipping, tripping and stumbling without subsequent striking against object, initial encounter
CPT/HCPCS: 81003; 99283

== ENCOUNTER 2023-10-28 11:55 | Emergency (ER) | payer BC ==
[2023-10-28 12:51] VITALS: RESP 18
[2023-10-28] MEDS: IBUPROFEN 800 MG TAB PO STA (13:57)
[2023-10-28] MEDS: Acetaminophen-Codeine 300-30mg TAB PO STA (13:57)
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
--- NOTE | 2023-10-28 14:16 | XR ---
EXAMINATION TYPE: XR chest 2V DATE OF EXAM: 10/28/2023 1:55 PM CLINICAL INDICATION:Male, 52 years old with history of cough; COMPARISON: Chest radiographs from 10/26/2023. TECHNIQUE: XR chest 2V Frontal and lateral views of the chest. FINDINGS: Lungs/Pleura: There is no evidence of pleural effusion, focal consolidation, or pneumothorax. Pulmonary vascularity: Unremarkable. Heart/mediastinum: Cardiomediastinal silhouette is unremarkable. Musculoskeletal: No acute osseous pathology. IMPRESSION: No acute cardiopulmonary disease/process.
[2023-10-28] MEDS: IBUPROFEN 600 MG STARTER PACK 4 TAB BTL PO STA (14:33)
[2023-10-28] MEDS: ACET/COD 300 MG/30 MG STARTER PACK 6 TAB BTL PO STA (14:33)
[2023-10-28 14:38] VITALS: BP 126/76; PULSE 86; TEMP 97.9
== END 2023-10-28 14:34 | disposition home or self-care (01) ==
LOC: SUPCPDRO 11:55 → EC 11:55
DX: S22.41XA Multiple fractures of ribs, right side, initial encounter for closed fracture (principal); M54.9 Dorsalgia, unspecified; R06.00 Dyspnea, unspecified; Z87.891 Personal history of nicotine dependence; V89.2XXA Person injured in unspecified motor-vehicle accident, traffic, initial encounter; Y92.410 Unspecified street and highway as the place of occurrence of the external cause
CPT/HCPCS: 71046; 99284